=== PATIENT | female | born 1965 | race Caucasian/White ===

== ENCOUNTER 2020-03-03 18:47 | Inpatient (IN) | payer BC ==
[~2020-03-03] VITALS: Ht 165.1 cm; Wt 65.3 kg
--- NOTE | 2020-03-03 18:51 | NUR ---
BIBRA 839 FROM HOME C/O NAUSEA/VOMITING STARTED 3 HOURS [facility]ELD [facility], TO ER BED 9, HOOKED TO MONITOR, CHANGED TO HOSP GOWN, WARM BLANKET PROVIDED, PATIENT AAO X 4, BREATHING EVEN AND UNLABORED. 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
[2020-03-03] MEDS ORDERED: ONDANSETRON HCL/PF 4 MG/2 ML VIAL ONE (18:59)
[2020-03-03] MEDS ORDERED: ONDANSETRON HCL/PF 4 MG/2 ML VIAL IVP ONE (19:00)
[2020-03-03] MEDS ORDERED: IV NS 0.9% 1,000 ML BAG IV ONE (19:00)
--- NOTE | 2020-03-03 19:04 | NUR ---
REPORT RECEIVED FROM SARAH LOW
--- NOTE | 2020-03-03 19:04 | NUR ---
HEAD OF CONSERVATION AT BEDSIDE
--- NOTE | 2020-03-03 19:06 | NUR ---
REPORT GIVEN TO DUSTIN SMITH FOR TED
[2020-03-03 19:10] LABS: BASOPHILS # (AUTO) 0.1 /CMM (0.0-0.2); BASOPHILS % (AUTO) 0.5 % (0.0-2.0); EOSINOPHILS % (AUTO) 0.7 % (0.0-6.0); HEMATOCRIT 38 % (33-45); HEMOGLOBIN 13.1 g/dL (11.5-14.8); LYMPHOCYTES # (AUTO) 2.2 /CMM (0.8-4.8); LYMPHOCYTES % (AUTO) 19.2 % (20.0-44.0); MEAN CORPUSCULAR HGB CONC 34 g/dl (31.0-36.0); MEAN CORPUSCULAR VOLUME 91 fL (82-100); MONOCYTES # (AUTO) 0.9 /CMM (0.1-1.30); MONOCYTES % (AUTO) 7.7 % (2.0-12.0); NEUTROPHILS # (AUTO) 8.4 /CMM (1.8-8.9); NEUTROPHILS % (AUTO) 71.9 % (43.0-81.0); PLATELET COUNT (AUTO) 193 /CMM (150-450); RED BLOOD CELL COUNT(AUTO) 4.22 MIL/uL (4.0-5.2); WHITE BLOOD COUNT (AUTO) 11.7 K/uL (4.3-11.0)
[2020-03-03 19:20] LABS: CALCIUM, SERUM 9.1 mg/dL (8.5-10.1); CREATININE 0.9 mg/dL (0.6-1.3); POTASSIUM 3.2 mmol/L (3.5-5.1)
[2020-03-03 19:25] LABS: ALBUMIN 4.2 g/dL (3.4-5.0); BILIRUBIN,DIRECT 0.2 mg/dL (0.0-0.2); BILIRUBIN,TOTAL 1.3 mg/dL (0.2-1.0); TOTAL PROTEIN, SERUM 7.2 g/dL (6.4-8.2)
[2020-03-03] MEDS ORDERED: LORAZEPAM INJ 2 MG/ML VIAL ONE (19:29)
[2020-03-03] MEDS ORDERED: LORAZEPAM INJ 2 MG/ML VIAL IV ONE (19:30)
--- NOTE | 2020-03-03 19:35 | NUR ---
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
[2020-03-03] MEDS ORDERED: IV PREMIX D5 NS + KCL 1,000 ML IV ONE (21:15)
--- NOTE | 2020-03-03 21:32 | NUR ---
BED ASSIGNMENT 307-1
[2020-03-03] MEDS ORDERED: IV PREMIX D5 1/2NS + KCL 1,000 ML IV ONE (21:44)
--- NOTE | 2020-03-03 21:58 | NUR ---
REPORT GIVEN TO SARAH HERNANDEZ FOR TED
--- NOTE | 2020-03-03 22:17 | NUR ---
PT TRANSFETRED PER [facility]S PROTOCOL
[2020-03-03 22:30] VITALS: BP 123/63
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
[2020-03-03 23:00] VITALS: BP 123/63
[2020-03-03] MEDS ORDERED: IV NS 0.9% 1,000 ML IV PRN (23:22)
[2020-03-03] MEDS ORDERED: ONDANSETRON HCL/PF 4 MG/2 ML VIAL IVP PRN (23:30)
[2020-03-03] MEDS ORDERED: Z GUARD REMEDY 2 OZ OINT TP PRN (23:30)
[2020-03-03] MEDS ORDERED: MAG HYDROX/AL HYDROX/SIMETH 30 ML UDC PO PRN (23:30)
[2020-03-03] MEDS ORDERED: MAGNESIUM HYDROXIDE 30 ML UDC PO PRN (23:30)
[2020-03-03] MEDS ORDERED: ZOLPIDEM TARTRATE 5 MG TABLET PO PRN (23:30)
[2020-03-03] MEDS ORDERED: HYDROCODONE/APAP 5/325MG 1 EACH TABLET PO PRN (23:30)
[2020-03-03] MEDS ORDERED: ACETAMINOPHEN 325 MG TABLET PO PRN (23:30)
[2020-03-03] MEDS ORDERED: LEVO25TA7 PO (23:31)
[2020-03-04] VITALS: BP 120/55
[2020-03-04 04:00] VITALS: BP 116/52
--- NOTE | 2020-03-04 07:22 | NUR ---
RN CLOSING NOTES NO SIGNIFICANT CHANGES IN Pt's CONDITION. Pt REMAINED STABLE PER BASELINE. NO S/S OF ACUTE DISTRESS OR SOB NOTED DURING THE NIGHT. ALL NEEDS MET AND ATTENDED TO. Pt IS RESTING COMFORTABLY IN BED. SAFETY MEASURES IN PLACE. TELE READING SB 50s (Pt's BASELINE). ENDORSED TO DAYSHIFT RN FOR Pt's TED.
[2020-03-04] MEDS ORDERED: MULT-24 PO (07:27)
[2020-03-04] MEDS ORDERED: LEVOTHYROXINE SODIUM 88 MCG TABLET PO SCH (07:30)
[2020-03-04] MEDS ORDERED: PANTOPRAZOLE 40 MG TABLET.DR PO SCH (07:30)
--- NOTE | 2020-03-04 07:30 | NUR ---
Tele/RN opening note Received patient AO x 4, able to responds all stimuli. Denied pain or any nauseate, skin is warm to touch, kept clean/dry, intact IV site. Respiratory even and unlabored in room air. Keep low position of bed with locked wheel and elevated head of bd for secure airway. Call light within reach, will contnue to monitor.
[2020-03-04 08:14] LABS: BASOPHILS % (AUTO) 0.5 % (0.0-2.0); EOSINOPHILS % (AUTO) 2.1 % (0.0-6.0); HEMATOCRIT 36 % (33-45); HEMOGLOBIN 12.3 g/dL (11.5-14.8); LYMPHOCYTES # (AUTO) 1.9 /CMM (0.8-4.8); LYMPHOCYTES % (AUTO) 36.9 % (20.0-44.0); MEAN CORPUSCULAR HGB CONC 34 g/dl (31.0-36.0); MEAN CORPUSCULAR VOLUME 91 fL (82-100); MONOCYTES # (AUTO) 0.5 /CMM (0.1-1.30); NEUTROPHILS # (AUTO) 2.7 /CMM (1.8-8.9); NEUTROPHILS % (AUTO) 51.5 % (43.0-81.0); PLATELET COUNT (AUTO) 166 /CMM (150-450); RED BLOOD CELL COUNT(AUTO) 3.94 MIL/uL (4.0-5.2); WHITE BLOOD COUNT (AUTO) 5.2 K/uL (4.3-11.0)
[2020-03-04 09:04] LABS: CALCIUM, SERUM 7.8 mg/dL (8.5-10.1); CREATININE 0.7 mg/dL (0.6-1.3); MAGNESIUM 1.9 mg/dL (1.8-2.4); POTASSIUM 3.4 mmol/L (3.5-5.1); THYROID STIMULATING HORMONE 1.866 uIU/mL (0.358-3.74)
[2020-03-04 09:41] VITALS: BP 104/58
[2020-03-04] MEDS ORDERED: Potassium Chloride 40 MEQ in IV NS 0.9% 1,000 ML IV PRN (10:45)
[2020-03-04 12:29] VITALS: BP 109/57
--- NOTE | 2020-03-04 15:30 | NUR ---
Given discharge instructions include continue meds, and side effects. Patient c/o headache otherwise pt in stable condition, given Tylenol before patient leave. Pt left room accompanied by staff to the private car.
--- NOTE | 2020-03-08 15:54 | NUR ---
CREATININE KINASE RESULT WAS RELAYED BY [facility]. CK RESULT IS 6.8. RESULT SHOWED TO DR. SELBY.
== END 2020-03-04 15:30 | disposition home or self-care (01) | DRG 645 ==
LOC: ER 18:52 → TELE 21:40 → MED 03-04 13:03
PROVIDERS: ADMIT Student in an Organized Health Care Education/Training Program; ATTEND Nurse Practitioner Acute Care
DX: E22.2 Syndrome of inappropriate secretion of antidiuretic hormone (principal); E86.0 Dehydration; R11.2 Nausea with vomiting, unspecified; E87.6 Hypokalemia; E03.9 Hypothyroidism, unspecified; E86.1 Hypovolemia; D72.828 Other elevated white blood cell count; F41.9 Anxiety disorder, unspecified
CPT/HCPCS: 36415; 71045-TC; 80048-TC; 80061-TC; 80076-TC; 82550-TC; 83735-TC; 84100-TC; 84443-TC; 84484-TC; 85025-TC; 87081-TC; G0378; J2060; J2405; J3480; J3490; J7030

== ENCOUNTER 2020-06-17 14:08 | Emergency (ER) | payer BC ==
[~2020-06-17] VITALS: Ht 165.1 cm; Wt 61.2 kg
[~2020-06-17 14:08] MED LIST: LEVO25TA7 PO; MULT-24 PO
[2020-06-17] MEDS ORDERED: IV NS 0.9% 1,000 ML BAG IV ONE (14:30)
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
[2020-06-17 14:37] LABS: BASOPHILS # (AUTO) 0.1 /CMM (0.0-0.2); BASOPHILS % (AUTO) 0.8 % (0.0-2.0); HEMATOCRIT 39 % (33-45); HEMOGLOBIN 12.8 g/dL (11.5-14.8); LYMPHOCYTES # (AUTO) 1.6 /CMM (0.8-4.8); LYMPHOCYTES % (AUTO) 19.8 % (20.0-44.0); MEAN CORPUSCULAR HGB CONC 33 g/dl (31.0-36.0); MEAN CORPUSCULAR VOLUME 93 fL (82-100); MONOCYTES # (AUTO) 0.6 /CMM (0.1-1.30); MONOCYTES % (AUTO) 7.1 % (2.0-12.0); NEUTROPHILS # (AUTO) 5.8 /CMM (1.8-8.9); NEUTROPHILS % (AUTO) 71.3 % (43.0-81.0); PLATELET COUNT (AUTO) 150 /CMM (150-450); RED BLOOD CELL COUNT(AUTO) 4.13 MIL/uL (4.0-5.2); WHITE BLOOD COUNT (AUTO) 8.1 K/uL (4.3-11.0)
[2020-06-17 14:45] LABS: CALCIUM, SERUM 9.3 mg/dL (8.5-10.1); CREATININE 0.9 mg/dL (0.6-1.3); POTASSIUM 3.7 mmol/L (3.5-5.1)
[2020-06-17 14:51] LABS: ALBUMIN 4.2 g/dL (3.4-5.0); BILIRUBIN,DIRECT 0.2 mg/dL (0.0-0.2); BILIRUBIN,TOTAL 0.7 mg/dL (0.2-1.0); TOTAL PROTEIN, SERUM 7.4 g/dL (6.4-8.2)
[2020-06-17 15:28] VITALS: BP 140/81
--- NOTE | 2020-06-17 15:29 | NUR ---
Patient discharged to home in stable condition. Written and verbal after care instructions given. Patient verbalizes understanding of instruction.IV removed. Catheter intact and site benign. Pressure and 4x4 applied to site. No bleeding noted.
== END 2020-06-17 15:29 | disposition home or self-care (01) ==
LOC: ER 14:12
DX: E86.0 Dehydration (principal); R11.2 Nausea with vomiting, unspecified; I95.9 Hypotension, unspecified; F41.9 Anxiety disorder, unspecified; E03.9 Hypothyroidism, unspecified; Z79.899 Other long term (current) drug therapy
CPT/HCPCS: 36415; 80048; 80076; 82550; 85025; 96360; 99283; J7030

== ENCOUNTER 2020-10-29 13:21 | Emergency (ER) | payer BC ==
[~2020-10-29] VITALS: Ht 165.1 cm; Wt 71.7 kg
[2020-10-29 13:47] VITALS: BP 158/89
[2020-10-29] MEDS ORDERED: ONDANSETRON 4 MG TAB.RAPDIS ONE (14:43)
--- NOTE | 2020-10-29 14:50 | NUR ---
Patient discharged to home in stable condition. Written and verbal after care instructions given. Patient verbalizes understanding of instruction.
[2020-10-29] MEDS ORDERED: ONDANSETRON 4 MG TAB.RAPDIS SL ONE (15:00)
== END 2020-10-29 14:49 | disposition home or self-care (01) ==
LOC: ER 13:27
DX: R11.0 Nausea (principal); F41.9 Anxiety disorder, unspecified; E03.9 Hypothyroidism, unspecified; Z98.890 Other specified postprocedural states; Z85.820 Personal history of malignant melanoma of skin; Z79.899 Other long term (current) drug therapy
CPT/HCPCS: 99283; Q0162